=== PATIENT | male | born 1990 | race African-American/Black ===

== ENCOUNTER 2018-07-25 11:01 | Emergency (ER) | payer SELFPAY ==
[2018-07-25] MEDS ORDERED: Ketorolac Tromethamine 30 MG/ML VIAL ONE (12:24)
--- NOTE | 2018-07-25 12:42 | RAD ---
THREE VIEWS OF THE RIGHT SHOULDER: DATE: 07/25/2018. COMPARISON: None. HISTORY: Awoke with joint pain, shoulder pain. FINDINGS: There is no widening of the acromioclavicular or coracoclavicular interspace. There is no displaced fracture or evidence of dislocation. There is a linear calcific density measuring 1.2 cm in length adjacent to the greater tuberosity of t he proximal right humeral suggesting calcific tendinosis. IMPRESSION: Findings suggesting right shoulder calcific tendinosis. POS: DRAKE
== END 2018-07-25 13:40 | disposition home or self-care (01) ==
LOC: ERS 11:01
DX: M75.31 Calcific tendinitis of right shoulder (principal)
CPT/HCPCS: 93005; 96372; J1885

== ENCOUNTER 2019-03-26 12:30 | Emergency (ER) | payer SELFPAY ==
--- NOTE | 2019-03-26 13:04 | RAD ---
EXAM: 3 views of the right hand COMPARISON: None HISTORY: Hand pain FINDINGS: 3 views of the right hand shows no evidence of acute fracture or dislocation. There is a sm all ossific fragment adjacent to the DIP joint of the small finger but this looks corticated and does not appear to represent an acute avulsion fracture fragment. No degenerative changes are seen. N o soft tissue swelling is present. IMPRESSION: No evidence of acute osseous abnormality.
== END 2019-03-26 13:12 | disposition home or self-care (01) ==
LOC: ERS 12:30
DX: M79.641 Pain in right hand (principal); W51.XXXA Accidental striking against or bumped into by another person, initial encounter